=== PATIENT | female | born 1985 | race Caucasian/White ===

== ENCOUNTER 2017-12-07 03:02 | Emergency (ER) | payer SELFPAY ==
[2017-12-07] MEDS ORDERED: Ziprasidone 20 MG VIAL ONE (10:36)
[2017-12-07] MEDS ORDERED: Sterile Water 10 ML VIAL FS SCH (10:45)
[2017-12-08] MEDS ORDERED: Sulfameth/Trimethoprim DS 800-160mg TAB ONE ×2 (09:55→23:41)
[2017-12-08] MEDS ORDERED: Ziprasidone 20 MG CAP ONE ×2 (09:55→23:41)
[2017-12-08] MEDS ORDERED: Acetaminophen 325 MG TAB ONE (09:56)
== END 2017-12-09 14:09 | disposition home or self-care (01) ==
LOC: ERS 03:02
DX: F15.10 Other stimulant abuse, uncomplicated (principal); F12.10 Cannabis abuse, uncomplicated; N39.0 Urinary tract infection, site not specified; J44.9 Chronic obstructive pulmonary disease, unspecified
CPT/HCPCS: 96372; A4216; J3486